=== PATIENT | female | born 1985 | race Caucasian/White ===

== ENCOUNTER → 2019-12-16 | Outpatient (CLI) | payer BC ==
[~2019-12-16] MED LIST: ACET1TAB43 PO; ACHD5005 PO; IBP600T1 PO; IBUP-1773 PO; PREN-94 PO; breast pump
--- NOTE | 2019-12-16 15:23 | Diagnostic Imaging Report ---
INDICATION: survey. TECHNIQUE: Multiple real-time grayscale images were obtained over the gravid uterus. COMPARISON: None FINDINGS: There is a single live fetus in cephalic presentation. heart rate recorded 130 bpm. Placenta is anterior. Amniotic fluid volume is normal. Cervical length is 3.6 cm. kidneys, bladder and stomach are unremarkable. brain is unremarkable. There is a four-chamber heart. There is a three-vessel cord with normal insertion. spine is unremarkable. Maternal adnexa was not evaluated. Biometrical measurements are as follows: Biparietal 4.69 cm, age 20 weeks 2 days. Head circumference 17.74 cm, age 20 weeks 2 days. Abdominal circumference 15.26 cm, age 20 weeks 4 days. Femur length 3.35 cm, age 20 weeks 4 days. Sonographic estimate age: 20 weeks 3 days. Sonographic estimated date of delivery: 05/01/2020. Estimated Weight: 354 gm (+/- 52 gm). LMP percentile: 63%. heart rate: 130 beats per minute. number: 1 of 1. IMPRESSION: Single live IUP 20 weeks 3 days gestational age. The estimated date of confinement sonographically is 05/01/2020. Dictated by: Dictated on workstation # [id number]
== END ==
LOC: RAD 12:35
PROVIDERS: ATTEND Obstetrics & Gynecology
DX: Z34.92 Encounter for supervision of normal pregnancy, unspecified, second trimester (principal); Z3A.20 20 weeks gestation of pregnancy
CPT/HCPCS: 76805

== ENCOUNTER 2020-04-23 06:50 | Inpatient (IN) | payer BC ==
[~2020-04-23] VITALS: Ht 162.6 cm; Wt 77.0 kg
[2020-04-23] VITALS (37 sets, daily range): BP systolic 92–161; BP diastolic 52–95
[2020-04-23] MEDS ORDERED: D5 LR IV SOLUTION 1,000 ML IV SCH (06:56)
[2020-04-23] MEDS ORDERED: OXYTOCIN PRE-MIX DRIP 500 ML IV SCH ×3 (06:59→14:30)
--- NOTE | 2020-04-23 06:59 | NUR ---
JAELYN BALDERAS presented to unit via ambulation from ED, accompanied by , for scheduled IOL. Pt. weighed, gowned, voided, and to bed. EFHM and TOCO applied, VS taken. Pt. oriented to bed controls, call light, TV, heat, and A/C controls.
[2020-04-23] MEDS ORDERED: MINERAL OIL CONCENTRATE 99.9% 15 ML UDC TOP PRN (07:00)
[2020-04-23 07:48] LABS: CLARITY,URINE CLEAR; COLOR,URINE YELLOW; PROTEIN,URINE NEGATIVE (NEGATIVE)
[2020-04-23 07:49] LABS: BACTERIA,URINE FEW /HPF; BILIRUBIN,URINE NEGATIVE (NEGATIVE); GLUCOSE, URINE (UA) NEGATIVE (NEGATIVE); KETONES,URINE NEGATIVE (NEGATIVE); LEUKOCYTE ESTERASE ,URINE TRACE (NEGATIVE); NITRITE,URINE NEGATIVE (NEGATIVE); RBC,URINE 0-2 /HPF; SQUAMOUS EPITHELIAL CELL,UR 0-2 /HPF; WBC,URINE 0-2 /HPF
--- NOTE | 2020-04-23 07:53 | NUR ---
#20g IV to Lt.hand x1 attempt per this RN. site patent, secured with opsite. admission labs collected prior to IVF's infusing. pt tolerated well.
--- NOTE | 2020-04-23 07:58 | NUR ---
@ bedside. monitor tracing reviewed.
[2020-04-23 08:32] LABS: BASOPHILS % (AUTO) 0 % (0-10); EOSINOPHILS # (AUTO) 0.1 10^3/uL (0.0-0.3); EOSINOPHILS % (AUTO) 1 % (0-10); HEMATOCRIT 38 % (35-52); HEMOGLOBIN 13.5 G/DL (11.5-16.0); LYMPHOCYTES # (AUTO) 1.6 X 10^3 (1.0-4.0); LYMPHOCYTES % (AUTO) 18 % (12-44); MEAN CORPUSCULAR HEMOGLOBIN 35 PG (25-34); MEAN CORPUSCULAR HGB CONC 36 G/DL (32-36); MEAN CORPUSCULAR VOLUME 98 FL (80-99); MEAN PLATELET VOLUME 11.3 FL (7.4-10.4); MONOCYTES # (AUTO) 0.6 X 10^3 (0.0-1.0); MONOCYTES % (AUTO) 6 % (0-12); NEUTROPHILS # (AUTO) 6.7 X 10^3 (1.8-7.8); NEUTROPHILS % (AUTO) 75 % (42-75); PLATELET COUNT 118 10^3/uL (130-400); RED CELL DISTRIBUTION WIDTH 13.1 % (10.0-14.5)
--- NOTE | 2020-04-23 09:24 | NUR ---
was called for epidural placement.
[2020-04-23] MEDS ORDERED: fentaNYL 2 mcg/ml BUPIVA 0.125 100 ML ONE (09:25)
[2020-04-23] MEDS ORDERED: LACTATED RINGERS 1,000 ML IV ONE ×2 (09:25→10:34)
[2020-04-23] MEDS ORDERED: fentaNYL INJECTION 100 MCG/2 ML AMP ONE (09:31)
[2020-04-23] MEDS ORDERED: BUPIVACAINE 0.25% 30 ML (SENSORCAINE) VIAL ONE (09:31)
--- NOTE | 2020-04-23 09:37 | NUR ---
Dr. Akers here for epidural placement. Procedure explained, consent reviewed and signed by anesthesia. Questions answered to patient's satisfaction. Time out taken to verify correct patient/procedure. Patient up to side of bed, assisted into sitting position. Betadine prep done x3 and sterile drape applied. 0943-Local done, see anesthesia record. 0952- Test dose given, see anesthesia record for drug and dosage. Epidural catheter secured in place. Epidural placement complete. 0956- Assisted back into bed, monitors adjusted. Epidural dosed, see anesthesia record. Epidural of Sufenta/Fentanyl @12cc/hr stated per pump. Patient tolerated procedure well.
[2020-04-23] MEDS ORDERED: fentaNYL 2 mcg/ml BUPIVA 0.125 100 ML IV SCH (10:34)
--- NOTE | 2020-04-23 10:37 | NUR ---
was called with SVE update.
[2020-04-23] MEDS ORDERED: LIDOCAINE/EPI 2% 1:200,00 (XYLOCAINE) 10 ML VIAL ONE (10:43)
[2020-04-23] MEDS ORDERED: NALOXONE 0.4 MG/ML 1 ML (NARCAN) VIAL IV PRN (10:45)
[2020-04-23] MEDS ORDERED: CATHETER FLUSH 10 ML SYR IV PRN (10:45)
[2020-04-23] MEDS ORDERED: diphenhydrAMINE 50 MG/ML INJ (BENADRYL) IV PRN (10:45)
[2020-04-23] MEDS ORDERED: ONDANSETRON 4 MG/2 ML (SDV) Z0FRAN IV PRN (10:45)
[2020-04-23] MEDS ORDERED: EPIDURAL (fentaNYL 2 MCG/ML BUPIVA 0.125%)100 ML BAG EPI SCH (10:45)
[2020-04-23] MEDS ORDERED: LIDOCAINE PF 2% 5 ML (XYLOCAINE) VIAL ONE (10:54)
--- NOTE | 2020-04-23 11:13 | OB Labor & Delivery Record ---
Vag Delivery Note Vag Delivery Note Date of Delivery: 04/23/20 Preoperative Diagnosis: No Hummel is a (34 /Para 3 /2 , Gestational Age 39 weeks, gestational thrombocytopenia Postoperative Diagnosis: Same Surgeon: LORIN HDZ Anesthesia: epidural Delivery Type: Findings: Viable female infant, apgars 9/9, weight Pending Lacerations: none Intact placenta with 3 vessel cord. No nuchal cord, body cord or shoulder dystocia Estimated Blood Loss: 150 ml Complications: None Condition: Stable Description of Procedure: The patient is a 34 year old female who presented for induction of labor due to low platelets and advanced dilation (5 cm). She was admitted and informed consent was obtained. Her labor course was remarkable for ROM and pitocin. She progressed to complete dilatation and began to push. She was then set up for delivery. The infant's head was delivered atraumatically in the BI position with compound presentation (with right hand over left shoulder). The shoulders and remainder of the infant's body were then delivered without difficulty. Upon delivery, the head was held below the level of the donell neum and the mouth and nares were bulb suctioned. The cord was doubly clamped and cut and the was handed off to the pediatric staff. An intact placenta with 3-vessel cord delivered via Jovan and there was found to be minimal bleeding.~ Vigorous fundal massage was performed and the fundus was found to be firm. IV oxytocin was given. Examination of the vagina and perineum revealed no laceration. Following the delivery, sponge, instrument and needle counts were correct. Mom and baby were both in stable condition in the labor suite. Vitals - Labs Vital Signs - I&O Vital Signs Date Time Temp Pulse Resp B/P (MAP) Pulse Ox O2 Delivery O2 Flow Rate FiO2 04/23/20 07:15 36.4 83 18 99 Room Air 04/23/20 07:15 36.4 83 18 136/94 (108) 99 Room Air Labs Laboratory Tests 04/23/20 07:00: Urine Color YELLOW, Urine Clarity CLEAR, Urine pH 7.0, Urine Specific [place] <=1.005, Urine Protein NEGATIVE, Urine Glucose (UA) NEGATIVE, Urine Ketones NEGATIVE, Urine Nitrite NEGATIVE, Urine Bilirubin NEGATIVE, Urine Urobilinogen 0.2, Urine Leukocyte Esterase TRACEH, Urine RBC (Auto) TRACEH, Urine RBC 0-2, Urine WBC 0-2, Urine Squamous Epithelial Cells 0-2, Urine Crystals NONE, Urine Bacteria FEWH, Urine Casts NONE, Urine Mucus NEGATIVE, Urine Culture Indicated NO 04/23/20 07:53: White Blood Count 9.0, Red Blood Count 3.89L, Hemoglobin 13.5, Hematocrit 38, Mean Corpuscular Volume 98, Mean Corpuscular Hemoglobin 35H, Mean Corpuscular H emoglobin Concent 36, Red Cell Distribution Width 13.1, Platelet Count 118L, Mean Platelet Volume 11.3H, Neutrophils (%) (Auto) 75, Lymphocytes (%) (Auto) 18, Monocytes (%) (Auto) 6, Eosinophils (%) (Auto) 1, Basophils (%) (Auto) 0, Neutrophils # (Auto) 6.7, Lymphocytes # (Auto) 1.6, Monocytes # (Auto) 0.6, Eosinophils # (Auto) 0.1, Basophils # (Auto) 0.0 LORIN HDZ DO Apr 23, 2020 11:13
[2020-04-23] MEDS ORDERED: DIBUCAINE (NUPERCAINAL) 1% OINT 30 GM TOP PRN (11:15)
[2020-04-23] MEDS ORDERED: BENZOCAINE/MENTHOL (DERMOPLAST) 60 ML CAN TP PRN (11:15)
[2020-04-23] MEDS ORDERED: TETANUS,DIPTH,PERTUSS P/F (BOOSTRIX) 0.5 ML VIAL IM ONE (11:15)
[2020-04-23] MEDS ORDERED: MEASLES,MUMPS,RUBELLA 1 EA INJ SQ ONE (11:15)
[2020-04-23] MEDS ORDERED: WITCH HAZEL(TUCKS) 40 EA JAR TOP PRN (11:15)
[2020-04-23] MEDS: IBUPROFEN 600 MG (MOTRIN) TAB PO SCH ×3 (11:30→23:21)
--- NOTE | 2020-04-23 12:30 | NUR ---
regular diet served.
--- NOTE | 2020-04-23 12:45 | NUR ---
FFu/o. moderate rubra noted. moderate amount of clots expressed. donell-care offered. thomas weighed 225cc.
--- NOTE | 2020-04-23 12:53 | NUR ---
was given update on recent fundal massage and blood loss.
--- NOTE | 2020-04-23 13:20 | NUR ---
pt turned disaster or damage control specialist light, requesting donell-care prior to BF infant. FF1/u. moderate amount groups of clots expressed with fundal massage. donell-care offered prior to assisting up to BR. +void. pt reports "a lot" of blood in the toilet. & "not feeling well". this RN stayed @ pt's side, emergency call light on. cont talking with pt, stating "I think I can make it back to bed". encouraged to remain on toilet until assistance arrived. color pale, head laid back against wall then pt resting head on knees, "I'm not feeling so well" 1322- was called on cell phone by Dylan, RN. no answer. 1323- Dylan, RN and Mark, RN arrived with w/c- assisted pt to w/c. " I don't think I'm going to make it". w/c @ bedside, pt passed out for 30 sec-1 min. jerking motion noted in upper extremities. pt comes to, "how long was I out?". spont urination noted. was notified via text to call [facility] unit. 1324- was called on cell phone by Dylan, RN. no answer. 1326- @ bedside. update given pt's status. 1327- Pitocin 500cc @ 999cc/hr infusing via IV pump 1329-assisted to bed, blood running down legs. FFu/0. moderate amount of clots expressed. heavy rubra noted. after clots expressed, FFu/1 with lt rubra noted. vs: 92/52. P115. color pale. O2 applied via mask. cool wash cloth applied to forehead. 1330- 's office was called with no answer. 1332- BP: 120/64. P: 94. 1335- BP: 132/60. P: 100. pt alert, talking. 1340- returned phone call. pt status updated on current EBL. orders received for Methergine 0.2ml IM. 1344- Methergine 0.2ml IM given in Lt. AT. 1348-FFu/0. moderate rubra noted with clots expressed. donell-care offered. chux weighed 110cc. "I still feel blood coming out." 1356- was texted update on pt's status. orders received for CBC and Cytotec 800mcg rectally. 1408- Cytotec 800mcg rectally given. POC reviewed with pt and s/o. FFu/0. lt rubra noted, no clots expressed. 1409- lab here for stat CBC. 1420- Hgb & total EBL updated to via text message. new orders received for Methergine p.o and NPO status. 1434- FFu/0. moderate-lt rubra noted, no clots expressed. donell-care offered. 75ml blood loss noted for total EBL 1065cc. pt reports that "mother had something similar happen to her after she had her 3rd baby. had D&C but never found cause of bleeding."
[2020-04-23] MEDS ORDERED: METHYLERGONOVINE 0.2 MG/ML (METHERGINE) AMP ONE (13:40)
[2020-04-23] MEDS ORDERED: MISOPROSTOL 200 MCG (CYTOTEC) TABLET ONE (13:56)
[2020-04-23] MEDS ORDERED: CATHETER FLUSH 10 ML SYR IV SCH ×2 (14:00)
[2020-04-23] MEDS ORDERED: METHYLERGONOVINE 0.2 MG/ML (METHERGINE) AMP IM ONE (14:15)
[2020-04-23] MEDS ORDERED: MISOPROSTOL 200 MCG (CYTOTEC) TABLET PR ONE (14:15)
[2020-04-23 14:23] LABS: BASOPHILS % (AUTO) 0 % (0-10); EOSINOPHILS % (AUTO) 0 % (0-10); HEMATOCRIT 34 % (35-52); HEMOGLOBIN 11.7 G/DL (11.5-16.0); LYMPHOCYTES # (AUTO) 0.9 X 10^3 (1.0-4.0); LYMPHOCYTES % (AUTO) 6 % (12-44); MEAN CORPUSCULAR HEMOGLOBIN 34 PG (25-34); MEAN CORPUSCULAR HGB CONC 35 G/DL (32-36); MEAN CORPUSCULAR VOLUME 99 FL (80-99); MEAN PLATELET VOLUME 10.2 FL (7.4-10.4); MONOCYTES # (AUTO) 0.6 X 10^3 (0.0-1.0); MONOCYTES % (AUTO) 4 % (0-12); NEUTROPHILS # (AUTO) 13.1 X 10^3 (1.8-7.8); NEUTROPHILS % (AUTO) 89 % (42-75); PLATELET COUNT 102 10^3/uL (130-400); RED CELL DISTRIBUTION WIDTH 12.9 % (10.0-14.5); WHITE BLOOD COUNT 14.6 10^3/uL (4.3-11.0)
--- NOTE | 2020-04-23 14:54 | NUR ---
Report given to CA Mccarty.
--- NOTE | 2020-04-23 15:15 | NUR ---
FUNDUS MASSAGED TO FIRM @ U/1. VAG FLOW MOD RUBRA. PERICARE WITH PAD CHANGE. WEIGHED PAD AT 50 MLS. VSS.
[2020-04-23] MEDS: ACETAMINOPHEN 500 MG TAB (TYLENOL) PO SCH ×2 (15:17→23:20)
--- NOTE | 2020-04-23 16:10 | NUR ---
UP TO THE BATHROOM. LARGE VOID. AMBULATED WITHOUT PROBLEMS. PERICARE PERFORMED WITH PAD/UNDERWEAR APPLIED. FF U/2. VAG FLOW LT/MOD RUBRA.
--- NOTE | 2020-04-23 16:20 | NUR ---
TRANSFERRED TO ROOM 310 VIA W/C IN STABLE CONDITION ACC BY THIS RN, SPOUSE PUSHING IN CRIB. ORIENTED TO SURROUNDINGS, CALL LIGHT OPERATION, INFORMATION PAPERS, AND MENU/DIETARY CONTACT NUMBER. INSTRUCTED PT NOT TO GET UP TO THE BATHROOM WITHOUT ASSISTANCE. INFORMED OF ORDER TO BE NPO AFTER MIDNIGHT A PRECAUTION. SPOUSE AT BEDSIDE HOLDING . FF U/2. VAG FLOW LT RUBRA.
--- NOTE | 2020-04-23 17:00 | NUR ---
VSS. FF U/2. VAG FLOW LT/MOD RUBRA.
[2020-04-23] MEDS: METHYLERGONOVINE 0.2 MG (MEHTERGINE) TAB PO SCH ×2 (17:17→21:29)
--- NOTE | 2020-04-23 18:15 | NUR ---
EATING DINNER. OFFERS NO COMPLAINTS. FF U/1. VAG FLOW LT/MOD RUBRA.
--- NOTE | 2020-04-23 18:45 | NUR ---
SALINE LOCKED IV. SITE CLEAR. ASKED PT IF SHE NEEDED TO GET UP TO THE BATHROOM AT THIS TIME. SHE STATES NOT REALLY. WANTING A SHOWER. INFORMED PT THAT NEW RN WOULD MOST LIKELY WANT TO EVALUATE PRIOR TO GETTING A SHOWER. SPOUSE AT BEDSIDE. SKIN TO SKIN. FF U/1. VAG FLOW LT RUBRA. BLADDER FILLING.
[2020-04-23] MEDS: DOCUSATE SODIUM 100 MG (COLACE) CAP PO SCH (21:29)
[2020-04-24 04:08] VITALS: BP 114/78
[2020-04-24] MEDS: METHYLERGONOVINE 0.2 MG (MEHTERGINE) TAB PO SCH ×2 (04:08→13:01)
[2020-04-24] MEDS: IBUPROFEN 600 MG (MOTRIN) TAB PO SCH ×2 (06:34→13:01)
[2020-04-24 06:44] LABS: BASOPHILS % (AUTO) 0 % (0-10); EOSINOPHILS # (AUTO) 0.1 10^3/uL (0.0-0.3); EOSINOPHILS % (AUTO) 1 % (0-10); HEMATOCRIT 31 % (35-52); HEMOGLOBIN 10.9 G/DL (11.5-16.0); LYMPHOCYTES # (AUTO) 2.1 X 10^3 (1.0-4.0); LYMPHOCYTES % (AUTO) 20 % (12-44); MEAN CORPUSCULAR HEMOGLOBIN 34 PG (25-34); MEAN CORPUSCULAR HGB CONC 35 G/DL (32-36); MEAN CORPUSCULAR VOLUME 99 FL (80-99); MEAN PLATELET VOLUME 10.5 FL (7.4-10.4); MONOCYTES # (AUTO) 0.7 X 10^3 (0.0-1.0); MONOCYTES % (AUTO) 7 % (0-12); NEUTROPHILS # (AUTO) 7.8 X 10^3 (1.8-7.8); NEUTROPHILS % (AUTO) 73 % (42-75); PLATELET COUNT 105 10^3/uL (130-400); RED CELL DISTRIBUTION WIDTH 12.9 % (10.0-14.5); WHITE BLOOD COUNT 10.7 10^3/uL (4.3-11.0)
[2020-04-24] MEDS ORDERED: PRENATAL VITAMIN 1 EA TAB PO SCH (07:00)
--- NOTE | 2020-04-24 07:25 | NUR ---
Called Dr. Young, update given including CBC results, new orders rc'd for Regular diet. Will round on pt this am.
--- NOTE | 2020-04-24 07:50 | Postpartum Progress Note ---
Note Note Day # 1 s/p Patient had little blood loss at delivery, but over the next few hours, passed multiple clots. this was finally controlled with methergine, misoprostol and pitocin. Her hemoglobin had a large drop, but she is stable and has had stable vital signs. She is asking to go home today. Plts bottomed out at 102,000 and are increasing. Subjective: Patient is without complaints. Ambulating, voiding. Tolerating a regular diet without nausea or vomiting. Normal lochia. Pain is well controlled with oral pain medications. breast feeding. Objective: 04/23/20 04/23/20 04/24/20 20:00 23:20 04:08 Temp 36.4 36.4 37.0 Pulse 84 84 95 Resp 18 18 18 B/P (MAP) 117/79 (92) 130/84 (99) 114/78 (90) Pulse Ox 100 99 99 O2 Delivery Room Air Room Air Room Air 04/24/20 00:00 Intake Total 500 ml Balance 500 ml Laboratory Tests Test 04/23/20 07:53 04/23/20 14:14 04/24/20 06:25 Range/Units White Blood Count 9.0 14.6 H 10.7 4.3-11.0 10^3/uL Red Blood Count 3.89 L 3.43 L 3.18 L 4.35-5.85 10^6/uL Hemoglobin 13.5 11.7 10.9 L 11.5-16.0 G/DL Hematocrit 38 34 L 31 L 35-52 % Mean Corpuscular Volume 98 99 99 80-99 FL Mean Corpuscular Hemoglobin 35 H 34 34 25-34 PG Mean Corpuscular Hemoglobin Concent 36 35 35 32-36 G/DL Red Cell Distribution Width 13.1 12.9 12.9 10.0-14.5 % Platelet Count 118 L 102 L 105 L 130-400 10^3/uL Mean Platelet Volume 11.3 H 10.2 10.5 H 7.4-10.4 FL Neutrophils (%) (Auto) 75 89 H 73 42-75 % Lymphocytes (%) (Auto) 18 6 L 20 12-44 % Monocytes (%) (Auto) 6 4 7 0-12 % Eosinophils (%) (Auto) 1 0 1 0-10 % Basophils (%) (Auto) 0 0 0 0-10 % Neutrophils # (Auto) 6.7 13.1 H 7.8 1.8-7.8 X 10^3 Lymphocytes # (Auto) 1.6 0.9 L 2.1 1.0-4.0 X 10^3 Monocytes # (Auto) 0.6 0.6 0.7 0.0-1.0 X 10^3 Eosinophils # (Auto) 0.1 0.0 0.1 0.0-0.3 10^3/uL Basophils # (Auto) 0.0 0.0 0.0 0.0-0.1 10^3/uL Physical Exam: General - Alert and oriented, no apparent distress Abdomen - Soft, appropriately tender to palpation, non-distended, fundus firm at umbilicus Extremities - no edema, negative Kindra's bilaterally Assessment: 1. post- day #1, status post spontaneous vaginal delivery. Recovering well, hemodynamically stable 2. Post hemorrhage - currently stable on iron Plan: Routine care. Encourage breast feeding. Encourage ambulation. Ferrous sulfate supplementation. Plan for discharge later today Vitals - Labs Vital Signs - I&O Vital Signs Date Time Temp Pulse Resp B/P (MAP) Pulse Ox O2 Delivery O2 Flow Rate FiO2 04/24/20 04:08 37.0 95 18 114/78 (90) 99 Room Air 04/23/20 23:20 36.4 84 18 130/84 (99) 99 Room Air 04/23/20 20:00 36.4 84 18 117/79 (92) 100 Room Air 04/23/20 17:00 37.0 85 18 120/82 (95) 98 Room Air 04/23/20 15:52 96 18 136/70 (92) Room Air 04/23/20 15:37 95 18 140/69 (92) Room Air 04/23/20 15:22 37.0 107 18 150/82 (104) Room Air 04/23/20 15:07 103 18 138/88 (105) Room Air 04/23/20 14:52 96 18 137/91 (106) Room Air 04/23/20 14:37 100 18 130/80 (97) Room Air 04/23/20 14:22 88 18 129/77 (94) Room Air 04/23/20 14:10 82 18 109/63 (78) Room Air 04/23/20 13:46 36.4 90 16 114/70 (85) Room Air 04/23/20 13:35 94 16 132/60 (84) Room Air 04/23/20 13:32 94 16 120/64 (82) Room Air 04/23/20 13:29 115 16 92/52 (65) Room Air 04/23/20 13:24 72 16 92/55 (67) Room Air 04/23/20 12:30 70 18 125/68 (87) Room Air 04/23/20 12:00 71 18 129/80 (96) Room Air 04/23/20 11:45 75 18 125/75 (92) Room Air 04/23/20 11:30 66 18 126/61 (82) Room Air 04/23/20 11:15 65 18 120/78 (92) Room Air 04/23/20 10:52 Non Rebreather 15.00 04/23/20 10:45 74 18 111/73 (86) 100 Room Air 04/23/20 10:25 86 18 125/80 (95) 100 Room Air 04/23/20 10:20 74 18 126/80 (95) 100 Room Air 04/23/20 10:15 73 18 114/66 (82) 99 Room Air 04/23/20 10:10 85 18 115/74 (88) 98 Room Air 04/23/20 10:05 85 18 126/86 (99) 98 Room Air 04/23/20 10:00 75 18 129/83 (98) 99 Room Air 04/23/20 09:55 70 18 135/86 (102) 100 Room Air 04/23/20 09:50 73 18 135/88 (104) 100 Room Air 04/23/20 09:40 80 18 134/89 (104) 100 Room Air 04/23/20 09:35 18 Room Air 04/23/20 09:20 70 18 137/76 (96) Room Air 04/23/20 09:05 83 18 161/95 (117) Room Air 04/23/20 08:50 18 Room Air 04/23/20 08:35 80 18 139/88 (105) Room Air 04/23/20 08:20 82 18 139/90 (106) Room Air 04/23/20 08:05 82 18 123/91 (102) Room Air I & O 04/24/20 07:00 Intake Total 2500 ml Balance 2500 ml Labs Laboratory Tests 04/23/20 07:53: White Blood Count 9.0, Red Blood Count 3.89L, Hemoglobin 13.5, Hematocrit 38, Mean Corpuscular Volume 98, Mean Corpuscular Hemoglobin 35H, Mean Corpuscular Hemoglobin Concent 36, Red Cell Distribution Width 13.1, Platelet Count 118L, Mean Platelet Volume 11.3H, Neutrophils (%) (Auto) 75, Lymphocytes (%) (Auto) 18, Monocytes (%) (Auto) 6, Eosinophils (%) (Auto) 1, Basophils (%) (Auto) 0, Neutrophils # (Auto) 6.7, Lymphocytes # (Auto) 1.6, Monocytes # (Auto) 0.6, Eosinophils # (Auto) 0.1, Basophils # (Auto) 0.0 04/23/20 14:14: White Blood Count 14.6H, Red Blood Count 3.43L, Hemoglobin 11.7, Hematocrit 34L, Mean Corpuscular Volume 99, Mean Corpuscular Hemoglobin 34, Mean Corpuscular Hemoglobin Concent 35, Red Cell Distribution Width 12.9, Platelet Count 102L, Mean Platelet Volume 10.2, Neutrophils (%) (Auto) 89H, Lymphocytes (%) (Auto) 6L , Monocytes (%) (Auto) 4, Eosinophils (%) (Auto) 0, Basophils (%) (Auto) 0, Neutrophils # (Auto) 13.1H, Lymphocytes # (Auto) 0.9L, Monocytes # (Auto) 0.6, Eosinophils # (Auto) 0.0, Basophils # (Auto) 0.0 04/24/20 06:25: White Blood Count 10.7, Red Blood Count 3.18L, Hemoglobin 10.9L, Hematocrit 31L, Mean Corpuscular Volume 99, Mean Corpuscular Hemoglobin 34, Mean Corpuscular Hemoglobin Concent 35, Red Cell Distribution Width 12.9, Platelet Count 105L, Mean Platelet Volume 10.5H, Neutrophils (%) (Auto) 73, Lymphocytes (%) (Auto) 20, Monocytes (%) (Auto) 7, Eosinophils (%) (Auto) 1, Basophils (%) (Auto) 0, Neutrophils # (Auto) 7.8, Lymphocytes # (Auto) 2.1, Monocytes # (Auto) 0.7, Eosinophils # (Auto) 0.1, Basophils # (Auto) 0.0 LORIN HDZ DO Apr 24, 2020 07:50
[2020-04-24] MEDS ORDERED: FERR325T18 PO (07:54)
[2020-04-24] MEDS ORDERED: IBUP-1773 PO (07:54)
[2020-04-24] MEDS ORDERED: ACET-93 PO (07:54)
--- NOTE | 2020-04-24 07:59 | Discharge Inst-Women's Service ---
Discharge Inst-Women's Serv Depart Medication/Instructions New, Converted or Re-Newed RX: Transmitted to Pharmacy Final Diagnosis gestational thrombocytopenia post hemorrhage vaginal delivery induction at 38 + weeks Problems Reviewed?: Yes Consults/Follow Up Additional Follow Up: Yes Activity Activity: Activity as Tolerated Driving Instructions: You May Drive NO SMOKING: NO SMOKING Nothing Inside Vagina: No Douching, No [place], No Tampons Diet Discharge Diet: No Restrictions Symptoms to Report to : Bleeding Excessive (> 1 pad per hour x 2 hours), Pain Increased, Fever Over 101 Degrees F, Vaginal Bleeding Increase, Cramps in Feet or Legs, Vaginal Discharge Foul For Any Problems or Questions: Contact Your Physician LORIN HDZ DO Apr 24, 2020 07:59
[2020-04-24] MEDS ORDERED: FERROUS SULF 325 MG (IRON) TAB PO SCH (08:00)
[2020-04-24 09:00] VITALS: BP 113/77
--- NOTE | 2020-04-24 09:00 | NUR ---
A.M. ASSESSMENT COMPLETED. VSS. DOING WELL. C/O SORE ABDOMEN AND BACK. FREQUENT FUNDAL MASSAGE YESTERDAY R/T BLEEDING. VAG FLOW LT RUBRA. FF U/2. CARING FOR IN ROOM. WELL. SPOUSE AT BEDSIDE.
[2020-04-24] MEDS: ACETAMINOPHEN 500 MG TAB (TYLENOL) PO SCH (09:26)
[2020-04-24] MEDS: DOCUSATE SODIUM 100 MG (COLACE) CAP PO SCH (09:26)
--- NOTE | 2020-04-24 10:45 | NUR ---
CONTINUES TO DO WELL. OFFERS NO COMPLAINTS. INFANT REMAINS IN ROOM. IN TO SEE PT.
[2020-04-24 12:45] VITALS: BP 125/86
--- NOTE | 2020-04-24 12:45 | NUR ---
VSS. CONTINUES TO DO WELL. OFFERS NO COMPLAINTS. IN ROOM. SPOUSE AT BEDSIDE.
--- NOTE | 2020-04-24 13:15 | NUR ---
EATING STORK KATEY.
--- NOTE | 2020-04-24 14:00 | NUR ---
RHOGAM 1 VIAL IM IN LEFT VG SITE. SITE CLEAR.
--- NOTE | 2020-04-24 14:50 | NUR ---
DISCHARGE INSTRUCTIONS REVIEWED WITH COPY TO PT. STATES UNDERSTANDING OF ALL INSTRUCTIONS AND NEED TO F/U SCHEDULED AND NEEDED.
[2020-04-24 15:25] VITALS: BP 125/86
--- NOTE | 2020-04-24 15:25 | NUR ---
DISMISSED AMB FROM [facility] WITH INFANT IN STABLE CONDITION TO FAMILY CAR ACC BY SPOUSE AND IRAJ BOATENG RN.
--- NOTE | 2020-04-24 15:48 | Anesthesia-Regional Post-Op ---
Regional Patient Condition Mental Status: Alert, Oriented x3 Circulation: Same as Pre-Op Headache: Absent Sensation: Full Recovery Motor Block: Absent Post Op Complications Complications None Follow Up Care/Instructions Patient Instructions None needed. Anesthesia/Patient Condition Patient was seen this morning and she was doing well, no complaints, stable vital signs, no apparent adverse anesthesia problems. She had a precipitous labor and the epidural did not set up as well as usual unfortunately. Will be available if needed. HENRRY COFFMAN DO Apr 24, 2020 15:48
== END 2020-04-24 15:25 | disposition home or self-care (01) | DRG 807 ==
LOC: LDRP 06:50
PROVIDERS: ADMIT Obstetrics & Gynecology; ATTEND Obstetrics & Gynecology
PROC: 10E0XZZ Delivery of Products of Conception, External Approach (ICD-10-PCS; principal; 2020-04-23)
DX: O99.12 Other diseases of the blood and blood-forming organs and certain disorders involving the immune mechanism complicating childbirth (principal); Z37.0 Single live birth; D69.6 Thrombocytopenia, unspecified; Z3A.39 39 weeks gestation of pregnancy; O72.1 Other immediate postpartum hemorrhage
CPT/HCPCS: 36415; 81000; 83033; 85025; 86850; 86900; 86901; 87088